=== PATIENT | female | born 1950 | race Caucasian/White ===

== ENCOUNTER → 2019-11-17 15:04 | Outpatient (CLI) | payer OTHER, SELFPAY ==
--- NOTE | ~2019-11-17 | MM_ITS ---
EXAMINATION: MM screening michael BI w verna HISTORY: Screening mammogram TECHNIQUE: Craniocaudal and mediolateral oblique 3-D tomosynthesis images were obtained and synthetic 2-D images were generated. CAD analysis was submitted and interpreted. COMPARISON: 05/23/2018, 05/06/2017, 04/30/2015 bilateral digital screening mammogram examinations BREAST PARENCHYMAL COMPOSITION: The breasts are heterogeneously dense, which may obscure small masses .. FINDINGS: There is focal asymmetry in the inner aspect of the right breast on CC projection; diagnost ic right mammogram is recommended, with ultrasound if required. Otherwise there Is no evidence of suspicious mass, calcification, or architectural distortion to sugg est malignancy in either breast. There has been no other suspicious interval change. IMPRESSION: 1. Focal asymmetry in the inner right breast on screening CC view 2. Diagnostic right mammogram is recommended, with ultrasound if required BI-RADS Category 0: Incomplete: Needs additional imaging evaluation. Reviewed, dictated and finalized at location A.
== END ==
PROVIDERS: Visit Provider Advanced Practice Midwife
DX: Z12.31 Encounter for screening mammogram for malignant neoplasm of breast (principal); R92.8 Other abnormal and inconclusive findings on diagnostic imaging of breast
CPT/HCPCS: 77063; 77067

== ENCOUNTER → 2019-11-27 14:13 | Outpatient (CLI) | payer OTHER, SELFPAY ==
--- NOTE | ~2019-11-27 | MMUS_ITS ---
EXAMINATION: MM diagnostic mammo unilat RT, US breast RT limited HISTORY: Follow-up right breast asymmetry TECHNIQUE: Additional 3-D tomosynthesis images of the right breast were performed and synthetic 2-D i mages were generated. CAD analysis was submitted and interpreted. High resolution right breast ultras ound was performed. COMPARISON: 11/17/2019 BREAST PARENCHYMAL COMPOSITION: The breasts are heterogenously dense, which may obscure small masses. FINDINGS: MAMMOGRAPHIC FINDINGS: There are no suspicious masses, calcifications or architectural distortion in the right breast to sug gest malignancy. ULTRASOUND: Limited right breast ultrasound: No heterogeneous echotexture in the medial half of the right breast without focal mass. IMPRESSION: 1. No evidence for malignancy in the right breast. 2. Routine yearly screening mammogram and regular clinical breast examination are recommended. BI-RADS Category 2: Benign finding(s). Reviewed, dictated and finalized at location A. IMPRESSION: 1. No evidence for malignancy in the right breast. 2. Routine yearly screening mammogram and regular clinical breast examination a re recommended. BI-RADS Category 2: Benign finding(s).
== END ==
PROVIDERS: Visit Provider Advanced Practice Midwife
DX: R92.8 Other abnormal and inconclusive findings on diagnostic imaging of breast (principal)
CPT/HCPCS: 76642; 77065

== ENCOUNTER → 2021-04-15 13:16 | Outpatient (CLI) | payer OTHER, SELFPAY ==
--- NOTE | ~2021-04-15 | MM_ITS ---
EXAMINATION: MM screening michael BI w verna HISTORY: Screening mammogram TECHNIQUE: Craniocaudal and mediolateral oblique 3-D tomosynthesis images were obtained and synthetic 2-D images were generated. CAD analysis was submitted and interpreted. COMPARISON: 11/27/2019 diagnostic right mammogram and limited right breast ultrasound examination 11/17/2019 bilateral screening mammogram BREAST PARENCHYMAL COMPOSITION: There are scattered areas of fibroglandular density. FINDINGS: There is no evidence of suspicious mass, calcification, or architectural distortion to sugg est malignancy in either breast. There has been no suspicious interval change. IMPRESSION: 1. No mammographic evidence of malignancy. 2. Recommend routine screening mammography in one year. BI-RADS Category 1: Negative Reviewed, dictated and finalized at location A. SHOT PACKER
--- NOTE | ~2021-04-15 | DEXA_ITS ---
Bone Density Report Name: GEOVANNA WEI Age: 70 Sex: Female Ethnicity: White Date of : 1950 Indication: osteopenia; postmenopausal Referring Provider: Ana Lilia Fontenot Study: Bone densitometry was performed. Exam Date: April 15, 2021 Accession number: [id number] Bone Density: Region BMD T-score Z-score Classification AP Spine (L1-L4) 0.867 -1.6 0.6 Osteopenia Femoral Neck (Left) 0.641 -1.9 0.0 Osteopenia Total Hip (Left) 0.753 -1.5 0.0 Osteopenia Femoral Neck (Right) 0.647 -1.8 0.1 Osteopenia Total Hip (Right) 0.786 -1.3 0.3 Osteopenia Total Hip Mean 0.770 -1.4 0.2 Osteopenia World Health Organization criteria for BMD impression classify patients as: Normal (T-score at or above -1.0), Osteopenia (T-score between -1.0 and -2.5), or Osteoporosis (T-score at or below -2.5). 10-year Fracture Risk(1): Major Osteoporotic Fracture 10% Hip Fracture 2.1% Reported Risk Factors: [place] (), Neck BMD=0.647, BMI=21.9 (1) FRAX(R) Version 3.08. Fracture probability calculated for an untreated patient. Fracture probability may be lower if the patient has received treatment. Previous Exams: Region Exam Age BMD T-score BMD Change BMD Change Date g/cm2 vs Baseline vs Previous AP Spine(L1-L4) 04/15/2021 70 0.867 -1.6 0.048* 0.023 08/20/2017 66 0.845 -1.8 0.025* 0.026* 04/28/2014 63 0.819 -2.1 -0.001 -0.015 04/05/2012 61 0.834 -1.9 0.014 -0.027* 02/28/2010 59 0.861 -1.7 0.041* 0.023* 02/13/2009 58 0.838 -1.9 0.019 0.006 02/13/2008 57 0.832 -2.0 0.013 0.036* 02/09/2007 56 0.796 -2.3 -0.023* -0.023* 02/11/2006 55 0.819 -2.1 Total Hip(Left) 04/15/2021 70 0.753 -1.5 -0.009 -0.009 08/20/2017 66 0.762 -1.5 0.000 -0.002 04/28/2014 63 0.764 -1.5 0.002 -0.030* 04/05/2012 61 0.794 -1.2 0.032* -0.006 02/28/2010 59 0.800 -1.2 0.038* 0.029* 02/13/2009 58 0.770 -1.4 0.008 -0.011 02/13/2008 57 0.781 -1.3 0.019 -0.081* 02/09/2007 56 0.861 -0.7 0.099* 0.099* 02/11/2006 55 0.762 -1.5 Total Hip(Right) 04/15/2021 70 0.786 -1.3 -0.046* -0.026 08/20/2017 66 0.813 -1.1 -0.020 -0.009 04/28/2014 63 0.821 -1.0 -0.011 -0.019 04/05/2012 61 0.840 -0.8 0.008 0.008 02/28/2010 59 0.832 -0.9 0.00
== END ==
PROVIDERS: PCP Family Medicine Sports Medicine; Visit Provider Advanced Practice Midwife
DX: Z12.31 Encounter for screening mammogram for malignant neoplasm of breast (principal); M81.0 Age-related osteoporosis without current pathological fracture; M85.88 Other specified disorders of bone density and structure, other site; M85.852 Other specified disorders of bone density and structure, left thigh; M85.851 Other specified disorders of bone density and structure, right thigh
CPT/HCPCS: 77063; 77067; 77080

== ENCOUNTER → 2022-08-07 14:54 | Outpatient (CLI) | payer OTHER, SELFPAY ==
--- NOTE | ~2022-08-07 | MM_ITS ---
EXAMINATION: MM screening michael BI w verna HISTORY: Screening mammogram TECHNIQUE: Craniocaudal and mediolateral oblique 3-D tomosynthesis images were obtained and synthetic 2-D images were generated. CAD analysis was submitted and interpreted. COMPARISON: April 15, 2021 bilateral screening mammogram November 27, 2019 diagnostic right mammogram and limited right breast ultrasound examination November 17, 2019, May 23, 2018 bilateral screening mammogram examinations BREAST PARENCHYMAL COMPOSITION: The breasts are heterogeneously dense, which may obscure small masses . FINDINGS: There is no evidence of suspicious mass, calcification, or architectural distortion to sugg est malignancy in either breast. There has been no suspicious interval change. IMPRESSION: 1. No mammographic evidence of malignancy. 2. Recommend routine screening mammography in one year. BI-RADS Category 1: Negative Reviewed, dictated and finalized at location A.
== END ==
PROVIDERS: PCP Family Medicine Sports Medicine; Visit Provider Obstetrics & Gynecology
DX: Z12.31 Encounter for screening mammogram for malignant neoplasm of breast (principal)
CPT/HCPCS: 77063; 77067

== ENCOUNTER → 2023-01-27 16:09 | Outpatient (CLI) | payer OTHER, SELFPAY ==
--- NOTE | ~2023-01-27 | XR_ITS ---
Cervical Spine: AP, lateral, open-mouth views Clinical History: Pain Findings: The normal lordotic curve is maintained. No fracture identified. There is 4 mm retrolisthes is of C5 over C6. There is minimal grade 1 anterolisthesis of C4 over C5. There is severe degenerativ e disc narrowing at C5-C6 and C6-C7. There is moderate facet arthropathy throughout the cervical spin e. Pre-vertebral soft tissues are unremarkable. Impression: 4 mm retrolisthesis of C5 over C6. Minimal grade 1 anterolisthesis of C4 over C5. Additional moderate to advanced degenerative changes, as above. Reviewed, dictated and finalized at location M. L SPRAYER PRODUCTION Impression: 4 mm retrolisthesis of C5 over C6. Minimal grade 1 anterolisthesis of C4 over C5. Additional moderate to advanced degenerative changes, as above.
--- NOTE | ~2023-01-27 | XR_ITS ---
Lumbosacral Spine: AP and lateral views Clinical History: Pain Findings: The normal lordotic curve is maintained. No fracture identified. There is 8mm anterolisthes is of L4 over L5. There is moderate degenerative disc narrowing at L2-L3 at L3-L4. There is severe fa cet arthropathy throughout the lumbar spine. The sacroiliac joints are normally outlined. Impression: 8 mm anterolisthesis of L4 over L5. Severe facet arthropathy throughout the lumbar spine, with moderate degenerative disc narrowing at L2 -L3 and L3-L4. Reviewed, dictated and finalized at location M. S SECRETARY Impression: 8 mm anterolisthesis of L4 over L5. Severe facet arthropathy throughout the lumbar spine, with moderate degenerativ e disc narrowing at L2-L3 and L3-L4.
== END ==
PROVIDERS: PCP Family Medicine; Visit Provider Family Medicine
DX: M51.36 Other intervertebral disc degeneration, lumbar region (principal); M50.90 Cervical disc disorder, unspecified, unspecified cervical region
CPT/HCPCS: 72040; 72100

== ENCOUNTER 2023-08-09 14:06 | Outpatient (CLI) | payer OTHER, SELFPAY ==
--- NOTE | ~2023-08-09 | MM_ITS ---
EXAMINATION: MM screening michael BI w verna HISTORY: Screening TECHNIQUE: Craniocaudal and mediolateral oblique 3-D tomosynthesis images were obtained and synthetic 2-D images were generated. CAD analysis was submitted and interpreted. COMPARISON: Comparison to multiple prior studies sequentially, with oldest reviewed study dated 05/06. BREAST PARENCHYMAL COMPOSITION: Not dense: There are scattered areas of fibroglandular density. FINDINGS: There is no evidence of suspicious mass, calcification, or architectural distortion to sugg est malignancy in either breast. There has been no suspicious interval change. IMPRESSION: 1. No mammographic evidence of malignancy. 2. Recommend routine screening mammography in one year. BI-RADS Category 1: Negative Reviewed, dictated and finalized at location B.
== END 2023-08-09 14:07 ==
LOC: MICIMG 14:07
PROVIDERS: PCP Family Medicine; Visit Provider Nurse Practitioner
DX: Z12.31 Encounter for screening mammogram for malignant neoplasm of breast (principal)
CPT/HCPCS: 77063; 77067

== ENCOUNTER 2024-07-29 08:23 | Outpatient (CLI) | payer OTHER, MEDICARE, SELFPAY ==
--- OUTSIDE RECORDS SUMMARY | 2024-07-29 08:28 | XMS_ITS | Referral Summary ---
Author Organization [facility] Address [address] [place] [address] Care Team Providers Care Alterations Tailor Name Role Phone Ari Katz MD Primary Care Provider [phone] Allergies No known active allergies Medications estradioL (ESTRACE) 0.01 % (0.1 mg/gram) vaginal cream estradiol 0.01% (0.1 mg/gram) vaginal cream Active MULTIVITAMIN ORAL Take by mouth Active turmeric root extract 500 mg capsule Take by mouth Active ascorbic acid (VITAMIN C) 500 mg tablet,chewable Take 1 tablet/chew tab (500 mg total) by mouth 2 (two) times a day 60 tablet/chew tab 4 Active cholecalciferol (VITAMIN D-3) 2000 unit capsule Take 1 capsule (2,000 Units total) by mouth daily 30 capsule 4 Active HYDROcodone-yulia taminophen (NORCO) 5-325 mg per tabletIndicatio ns:Pain Take 1 tablet by mouth every 6 (six) hours as needed for pain 15 tablet 4 Active ondansetron (ZOFRAN) 4 mg tabletIndicatio ns:Prevention of Post-Operative Nausea and Vomiting Take 1 tablet (4 mg total) by mouth every 6 (six) hours as needed for nausea or vomiting 20 tablet 1 4 Active Active Problems Problem Noted Date Diagnosed Date Carpal tunnel syndrome on right 04/09/2022 Overview (04/09/2022): Added automatically from request for surgery [id number] Cubital tunnel syndrome on right 04/09/2022 Overview (04/09/2022): Added automatically from request for surgery [id number] Atrophic vaginitis 01/28/2021 Vaginal pessary in situ 01/28/2021 Vaginal ulcer 01/28/2021 Social History Tobacco Use Types Packs/Day Years Used Date Smoking Tobacco: Never Smokeless Tobacco: Never AUDIT-C Answer Date Recorded Q1: How often do you have a drink containing alc ohol? 2-3 times a week 04/22/2023 Q2: How many drinks containi ng alcohol do you have on a typical day when you are drinking? 1 or 2 04/22/2023 Q3: How often do you have si x or more drinks on one occasion? Never 04/22/2023 Personal Safety Answer Date Recorded Have you ever been in or are you currently in a harmful physical or emotional relationship or is someone making you feel afraid or unsafe? Denies 04/22/2023 Comments Unknown Sex and Gender Information Value Date Recorded Sex Assigned at Not on file Legal Sex Female 1:56 PM CDT Gender Identity Not on file Sexual Orientation Not on file Last Filed Vital Signs Vital Sign Reading Time Taken Comments Blood Pressure 158/94 05/06/2023 1:46 PM CDT Pulse 61 05/06/2023 1:46 PM CDT Temperature 36.2 C (97.2 F) 04/22/2023 2:30 PM STRAIGHT LINE EDGER Respiratory Rate 18 04/22/2023 2:30 PM STRAIGHT LINE EDGER Oxygen Saturation 100% 04/22/2023 2:30 PM STRAIGHT LINE EDGER Inhaled Oxygen Concentration - - Weight 54.8 kg (120 lb 14.4 oz) 05/06/2023 1:46 PM CDT Height 157.5 cm (5' 2) 05/06/2023 1:46 PM CDT Body Mass Index 22.11 05/06/2023 1:46 PM CDT Plan of Treatment Not on file Insurance GILMAR GILMAR Care Teams Alterations Tailor Relationship Specialty Start Date End Date Ari Katz MD [address] [place] [address] PCP - General Family Medicine 04/09/23
--- OUTSIDE RECORDS SUMMARY | 2024-07-29 08:28 | XMS_ITS | Patient Health Record ---
Author Organization [employer] Address [address] [place] [address] Care Team Providers Care Test Engineer Nuclear Equipment Name Role Phone Lee Hope MD Primary Care Provider Unavailab Campbell Chua Unavailable [phone] Reason For Referral No Information Problems Problem Type SNOMED Code ICD Code Onset Dates Problem Status W/U Status Risk Notes Problem 485401572 Diverticulosis o f large intestine without perforation or abscess without bleeding (K57.30) Active confirmed Plan Of Treatment No Information Insurance Providers Payer Name Payer Address Payer Phone Subscriber Number Group Number Insured Name Patient Relationship to Insured Coverage Start Date Coverage End Date C[employer] Access [employer] [address] [facility] [place] [id number] [phone] [id number] Peggy Copeland Self - patient is the insured
--- OUTSIDE RECORDS SUMMARY | 2024-07-29 08:28 | XMS_ITS | Clinical Summary ---
Author Organization [facility] Address [address] [place] [address] Care Team Providers Care Slasher Tender Helper Name Role Phone Ari Katz MD Primary Care Provider [phone] Allergies No known active allergies Medications estradioL [...] (04/09/2022): Added automatically from request for surgery [id number] Cubital tunnel syndrome on right 04/09/2022 Overview (04/09/2022): Added automatically from request for surgery [id number] Atrophic vaginitis 01/28/2021 Vaginal pessary in situ 01/28/2021 Vaginal ulcer 01/28/2021 Surgical History Surgery Date Site/Laterality Comments HERNIA REPAIR 12/15/2022 Umbilical hernia with mesh Social History Tobacco Use Types Packs/Day Years [...] on file Sexual Orientation Not on file Obstetrics History Last Filed Vital Signs Vital Sign Reading Time Taken Comments Blood Pressure 158/94 05/06/2023 1:46 PM CDT Pulse 61 05/06/2023 1:46 PM CDT Temperature 36.2 C (97.2 F) 04/22/2023 2:30 PM ELECTRICIAN SUPERVISOR SUBSTATION Respiratory Rate 18 04/22/2023 2:3 0 PM ELECTRICIAN SUPERVISOR SUBSTATION Oxygen Saturation 100% 04/22/2023 2:30 PM ELECTRICIAN SUPERVISOR SUBSTATION Inhaled Oxygen Concentration - - Weight 54.8 kg (120 lb 14.4 oz) 05/06/2023 1:46 PM CDT Height 157.5 cm (5' 2) 05/06/2023 1:46 PM CDT Body Mass Index 22.11 05/06/2023 1:46 PM CDT Plan of Treatment Health Maintenance Due Date Last Done Comments Colon Cancer Screening-Colonoscopy 1950 Depression Screening 1950 Hepatitis C Screening 1950 Osteoporosis Screening-Bone Density Scan 1950 DTaP/Tdap/Td Vaccine (1 - Tdap) 1960 Hepatitis B Screening 12/03/1967 Pneumococcal vaccine 65+ (1 of 1 - PCV) 12/03/1999 Zoster Vaccine (1 of 2) 12/03/1999 Well Visit 65+ 2014 Breast Cancer Screening-Mammogram 08/08/2023 08/07/2022, 04/15/2021, 11/20/2019, Additional history exists Fall Risk Assessment 04/08/2024 04/08/2023 Influenza Vaccine (Season Ended) 2024 Insurance GILMAR GILMAR Care Teams Slasher Tender Helper Relationship Specialty Start Date End Date Ari Katz MD [facility] [place] [address] PCP - General Family Medicine 04/09/23
--- OUTSIDE RECORDS SUMMARY | 2024-07-29 08:29 | XMS_ITS | Data Portability ---
Author Organization [facility] Address [address] [place] [address] Care Team Providers Care Production Service Manager Name Role Phone NATALIYA HAZEL Primary Care Provider Assessment Encounter Date Assessment Date Assessment LastModified by Organization Details LastModified Time 01/27/2021 01/27/2021 Leave pessary out for 4 weeks estrace cream nightly for that time. Fu 1 month will need to continue at least occasional estrace indefinitely with pessary. Not available 01/28/2021 09:19:09 02/24/2021 02/24/2021 Ulcerated area healing well may use pessary prn, encouraged to take out at night though. continue estrace cream 3x/week. FU WWE [email or web address] Not available 02/24/2021 18:47:31 01/13/2022 01/13/2022 healthy female exam/menopause patient declines std testing pap- none further mammogram UTD colonoscopy pending dexa repeat estrace refilled and strongly encouraged or may have to stop pessary use. otherwise doing extremely well with pessary. Encouraged weight bearing exercise and 1500mg daily of Calcium with Vitamin D FU 1 year or prn [email or web address] Not available 01/14/2022 07:54:30 01/20/2023 01/20/2023 Annual gynecological exam performed. Patient will come back in a year unless there are new symptoms. [email or web address] Not available 01/20/2023 15:45:49 01/31/2024 01/31/2024 Annual gynecological exam performed. Patient will come back in a year unless there are new symptoms. Not available 01/31/2024 15:15:50 Plan of Treatment Reminders Order Date Submit Date Provider Last Modified By Organization Details Last Modified Time Details Appointments None recorded. Lab None recorded. Referral None recorded. Procedures None recorded. Surgeries None recorded. Imaging DEXA, axial skeleton + vertebral fracture assessment 2023 [facility], [address], [place], [address], 4 04:13:53 MAMMO, screening, digital, bilateral 2023 024 [facility], [address], [place], [address], 4 04:13:53 MAMMO, screening, digital, bilateral [address] [facility], [address], [place], [address], 4 05:01:01 Medication Orders estradiol 0.01% (0.1 mg/gram) vaginal cream 2023 024 [facility], [address], [place], [id number], 4 15:51:17 estradiol 0.01% (0.1 mg/gram) vaginal cream [address] [facility]16[facility], [address], [place], [id number], 3 09:31:38 Estrace 0.01% (0.1 mg/gram) vaginal cream 2021 022 [facility]75, [address], [place], [id number], 2 18:00:38 Estrace 0.01% (0.1 mg/gram) vaginal cream 2020 021 [email or web address] 1 [facility] #35646, [address] [place], [place], [id number], 17:34:31 Patient TargetsNo targets recorded. Patient InstructionsNo instructions recorded. Reason for Referral None Reported. Results Created Date Observation Date Name Description Value Unit Range Abnormal Flag Note LastModifiedBy Organization Detail LastModifiedTime 01/07/20 21 01/06/2021 IMAGE GUIDE D PAP AND HPV REGAR DLESS image guided Pap, HPV regardless of Pap result SEE RESULT S BELOW CASE REPOR T: Cytol ogy Gynec ologi consuelo Repor t Case: [id number] Autho matthewiván rodrick Provi jason: Ana Lilia Patel, JO Colle cted: 01/06 1736 Order ing Locat ion: [place] [facility] Recei alka: 01/07 0058 First Scree n: Kiki Tierney ret, CT Speci men: Scree lorraine Pap - Image d, Cervi x STATE MENT OF ADEQU ACY: Satis facto ry for evalu ation Trans forma tion zone compo nent canno t be defin itive ly ident ified due to the prese nce of atrop hy or other hormo nal le es FINAL DIAGN OSIS: Negat jesus for Intra epith elial Lesio n or Kalpesh sales (NIL) . Atrop hic alvino zimmerman rn. Jovan mistry christ d by Kiki Tierney ret, CT on 01/12 at 10:37 AM ----- ----- ----- ----- ----- ----- ----- ----- ----- ----- ----- ----- ----- ----- ----- ----- ----- ---- HPV RESUL TS: HPV mRNA E6/E7 : No HPV mRNA Detec annie NOTE: This high risk HPV mRNA assay detec ts fourt een high- risk HPV types (16, 18, 31, 33, 35, 39, 45, 51, 52, 56, 58, 59, 66, 68) witho ut diffe renti ation . COMME NT: Note: This speci men was revie wed by a Cytot echno logis t and/o r Patho logis t (as indic ated in this repor t) after evalu ation using the Thinp rep Imagi ng Syste m. CLINI CONSUELO INFOR MATIO N: Menst rual Statu s: LMP (if appli cable ): Clini consuelo Histo ry/Pr eviou s Pap: Type of Neopl napoleon (if appli cable ): Signi fican t Clini consuelo Findi ngs: Other Histo ry: Hormo ena (if appli cable ): PAP EDUCA BJORN L NOTE: The Pap Test is a scree lorraine test with an inher ent false negat jesus rate. Liqui d-bas e sampl ing may decre ase, but will not elimi logan, false negat jesus resul ts. A negat jesus resul t does not precl ude the prese nce and/o r devel opmen t of disea se, since the prese nce of abnor mal cells in the sampl e depen ds on the locat ion of the lesio n and sampl ing techn ique. Sourav nued regul ar scree lorraine is the best metho d of cance r preve ntion . If repor annie cytol ogic findi ng do not corre late with physi consuelo and/o r histo rical findi ngs, furth er inves tigat ion is recom sapna d, as clini leoncio ng nted. Not Available [facility] (Lab) [address], [place], [address], 01/12/2021 11:39:48 04/15/19 22 04/15/2021 MAMMO , scree lorraine, bilat eral No observ ation record ed. [facility] [address], [place], [address], 02/17/2023 23:27:27 04/21/19 22 04/15/2021 DEXA No observ ation record ed. [email or web address] [facility] [address], [place], [address], 05/15/2021 11:12:22 08/08/19 23 08/07/2022 MAMMO , scree lorraine, bilat eral No observ ation record ed. [email or web address] [facility] [address], [place], [address], 08/10/2022 09:04:47 08/09/19 24 08/09/2023 MAMMO , scree lorraine, digit al, bilat eral No observ ation record ed. [facility] [address], [place], [address], 08/23/2023 04:12:52 Result Notes None recorded. Problems Name Problem SNOMED Code Status Onset Date Resolution Date Notes Provider Name and Address Organization Details Recorded Time Disorder of pelvic region of trunk Completed 201701/06/2021 Cystocel e;Record ed Elsewher e: No Locat ion: [facility] S ource: E[employer] Pel[employer] Operator jared: N Tobias ce ID: 0001 Reymundo lable Time: 03:15:00 PM Marcelle crowley [facility] 14:35:53 Screenin g for malignan t neoplasm of rectum Completed 201701/06/2021 Encounte r for screenin g for malignan t neoplasm of rectum;R ecorded Elsewher e: No Locat ion: [facility] S ource: [employer] Operator jared: N Juliocesarti ce ID: 0001 Reymundo lable Time: 04:00:00 PM Marcelle crowley [facility] 14:35:[address] Concept Completed 201801/06/2021 Encntr for general adult medical exam w/o abnormal findings ;Recorde d Elsewher e: No [facility]at ion[facility] Pract[facility] ce ID: 0001 Reymundo lable Time: 03:30:00 PM Marcelle crowley [facility] 14:36:00 Screenin g for malignan t neoplasm of cervix Completed 201101/06/2021 Screenin g for malignan t neoplasm s of the cervix;R ecorded Elsewher e: No Locat ion: [facility] Practi ce ID: 0001 Reymundo lable Time: 04:30:00 PM Marcelle crowley, [facility] 14:35:51 Adult health examinat ion Completed 201401/06/2021 ROUTINE MEDICAL EXAM;Rec orded Elsewher e: No Locat ion: [facility] S ource: [employer] Operator jared: N Practi ce ID: 0001 Reymundo lable Time: 04:00:00 PM Marcelle crowley, [facility] 14:35:56 Leukocyt osis [id number] Completed 201401/06/2021 LEUKOCYT OSIS NOS;Nuno rded Elsewher e: No Locat ion: [facility] Practi ce ID: 0001 Reymundo lable Time: 04:00:00 PM Marcelle crowley, [facility] 14:35:47 Speciali zed medical examinat ion Completed 201301/06/2021 Gynecolo gical Examinat ion;Nuno rded Elsewher e: No Locat ion: [facility] N Practi ce ID: 0001 Reymundo lable Time: 04:30:00 PM Marcelle crowley, [facility] 14:36:07 Abnormal granulat ion tissue 82508034 Completed 201401/06/2021 Abnormal granulat ion tissue;R ecorded Elsewher e: No Locat ion: [facility] S ource: E[employer] Operator jared: N Juliocesarti ce ID: 0001 Reymundo lable Time: 04:30:00 PM Marcelle corwley [facility] 1 14:35:[address] Concept Completed 201501/06/2021 Encntr for paper cutter exam (general ) (routine ) w/o abn findings ;Recorde d Elsewher e: No Locat ion: [facility] S ource: [employer] Operator jared: N Juliocesarti ce ID: 0001 Reymundo lable Time: 04:00:00 PM Marcelle crowley, [facility] 14:36:01 Abdomina l bloating 511146377 Completed 201501/06/2021 Bloating ;Recorde d Elsewher e: No Locat ion: [facility] S ource: [employer] jared: N Juliocesarti ce ID: 0001 Reymundo lable Time: 04:00:00 PM Marcelle crowley, [facility] 14:35:48 Elevated blood-pr essure reading without diagnosi s of hyperten dano [id number] Completed 201501/06/2021 Elevated blood-pr essure reading without diagnosi s of HTN;Nuno rded Elsewher e: No Locat ion: [facility] S ource: [employer] Operator jared: N Juliocesarti ce ID: 0001 Reymundo lable Time: 04:00:00 PM Marcelle crowley [facility] 14:36:03 Bone density finding 182565709 Completed 201701/06/2021 Oth disrd of bone density and structur e, multiple sites;Re corded Elsewher e: No Locat ion: [facility] S ource: [employer] Operator jared: N Juliocesarti ce ID: 0001 Reymundo lable Time: 01:44:52 PM Marcelle crowley, [facility] 14:36:05 Postmeno pausal bleeding 31758141 Completed 201101/06/2021 Postmeno pausal bleeding ;Recorde d Elsewher e: No Locat ion: [facility] S ource: [employer] Operator jaerd: N Juliocesarti ce ID: 0001 Reymundo lable Time: 04:15:00 PM Marcelle crowley, [facility] 1 14:36:13 Disorder of bone and articula r cartilag e 140874004 Completed 201401/06/2021 Disorder of bone and cartilag e, unspecif ied;Nuno rded Elsewher e: No Locat ion: [facility] S ource: [employer] Operator jared: N Tobias ce ID: 0001 Reymundo lable Time: 04:23:15 PM Marcelle crowley, [facility] 1 14:35:54 Urinary tract infectio us disease 09874802 Completed 201301/06/2021 Urinary Tract Infectio n;Record ed Elsewher e: No Locat ion: [facility] S ource: [employer] Operator jared: N Juliocesarti ce ID: 0001 Reymundo lable Time: 04:30:00 PM Marcelle crowley, [facility] 1 14:36:12 Vaginal pessary in situ 6660343543 104 Active 2020 Kelin Morris MD [address], [place], [address], [place] [facility] 1 09:15:53 Atrophic vaginiti s 65698153 Active 2020 Kelin Morris MD [address], [place], [address], [place] [facility] 1 09:16:00 Vaginal ulcer 50567137 Active 2020 Kelin Morris MD [address], [place], [address], [facility] 1 09:16:01 Osteopen ia 071143812 Active 2021 Kelin Morris MD [address], [place], [address], [facility] 2 07:50:57 Problem Notes None recorded. Procedures Surgical History Date Name Laterality Status Provider Name and Address Organization Details Recorded Time 4 Date of Last [facility] 15:16:44 3 hernia repair completed Judi Freitas [facility] 01/20/2023 15:55:35 2 Most Recent Bone Density completed Gayle Ibarra [facility] 01/12/2022 15:09:09 1 Date of Last Pap Smear [facility] 01/31/2024 15:29:[address] [facility] 01/06/2021 14:38:21 2 completed [facility] 01/06/2021 14:38:57 Imaging Results None recorded. Procedure Notes None recorded. Medical Equipment None Reported. Allergies No known drug allergies Medications Name Sig Start Date Stop Date Status Note LastModified by Organization Details LastModified Time ketoconaz ole 2 % shampoo 01/06 completed Not Available Not Available Not Available azithromy mariam 250 mg tablet TAKE 2 TABLETS BY MOUTH FOR 1 DAY THEN TAKE 1 TABLET BY MOUTH DAILY FOR 4 DAYS 01/20 completed Not Available Not Available Not Available valacyclo vir 1 gram tablet 08/10 completed Not Available Not Available Not Available hydrocodo ne 5 mg-acetam inophen 325 mg tablet TAKE 1 TABLET BY MOUTH EVERY 6 HOURS NEEDED FOR PAIN 01/30 completed Not Available Not Available Not Available ondansetr on HCl 4 mg tablet 01/30 completed Not Available Not Available Not Available prednison e 20 mg tablet 01/27 completed Not Available Not Available Not Available sulfameth oxazole 800 mg-trimet hoprim 160 mg tablet 01/06 completed Not Available Not Available Not Available Macrobid 100 mg capsule Take 1 capsule every 12 hours by oral route for 7 days. 01/06 completed Not Available Not Available Not Available imiquimod 5 % topical cream packet active Not Available Not Available Not Available neomycin- polymyxin -dexameth 3.5 mg/mL-10, 000 unit/mL-0 .1% eye drops 08/10 completed Not Available Not Available Not Available Viactiv 500 mg-100 unit-40 mcg chewable tablet 04/24 completed Prescrib ed Elsewher e: Yes [facility] By: ashley serranountmanish DateTime : 04/09/19 04:00:00 PM Not Available Not Available Not Available estradiol 0.01% (0.1 mg/gram) vaginal cream Insert 1 g 3 times a week by vaginal route. 2023 active Not Available Not Available Not Avai lable methylpre dnisolone 4 mg tablets in a dose pack 08/10 completed Not Available Not Available Not Available clobetaso l 0.05 % scalp solution 01/06 completed Not Available Not Available Not Available cefdinir 300 mg capsule 08/10 completed Not Available Not Available Not Available amoxicill in 875 mg-potass ium clavulana te 125 mg tablet TAKE 1 TABLET BY MOUTH TWICE DAILY FOR 7 DAYS 01/30 completed Not Available Not Available Not Available Collagen Plus Vitamin C 125 mg-740 mg capsule 04/24 completed Prescrib ed Elsewher e: No [facility] By: ashley Joy ncounter DateTime : 04/09/19 04:00:00 PM Not Available Not Available Not Available azelastin e 137 mcg-fluti casone 50 mcg/spray nasal spray INSTILL 1 SPRAY INTO EACH NOSTRIL EVERY 12 HOURS FOR 7 DAYS 01/30 completed Not Available Not Available Not Available tavaborol e 5 % topical solution with applicato r APPLY TO AFFECTED NAIL(S) ONCE DAILY 01/30 completed Not Available Not Available Not Available Soolantra 1 % topical cream 08/10 completed Not Available Not Available Not Available Clenpiq 10 mg-3.5 gram-12 gram/160 mL oral solution USE BOX DIRECTIO NS 01/20 completed Not Available Not Available Not Available Vitals Date Recorded Body height Body mass index (BMI) Body weight Systolic blood pressure Diastolic blood pressure Provider Name and Address Organization Details Last Updated DateTime 02/24/2021 154.94 cm 23.2 kg/m2 85340.86 g 137 mm[Hg] 83 mm[Hg] [facility] 2 17:32:10 Date Recorded Body height Body mass index (BMI) Body weight Systolic blood pressure Diastolic blood pressure Provider Name and Address Organization Details Last Updated DateTime 01/13/2022 154.94 cm 23.1 kg/m2 47052.27 g 141 mm[Hg] 84 mm[Hg] Angely Sandhu [facility] 2 17:34:26 Date Recorded Body height Body mass index (BMI) Body weight Systolic blood pressure Diastolic blood pressure Provider Name and Address Organization Details Last Updated DateTime 01/20/2023 154.94 cm 23.1 kg/m2 55189.99 g 133 mm[Hg] 82 mm[Hg] Judi Freitas [facility] 3 15:54:48 Date Recorded Body height Body mass index (BMI) Body weight Systolic blood pressure Diastolic blood pressure Provider Name and Address Organization Details Last Updated DateTime 01/27/2021 154.94 cm 23.1 kg/m2 72801.27 g 128 mm[Hg] 72 mm[Hg] [facility] 1 17:57:05 Date Recorded Body height Body mass index (BMI) Body weight Systolic blood pressure Diastolic blood pressure Provider Name and Address Organization Details Last Updated DateTime 01/31/2024 154.94 cm 22.3 kg/m2 93597.9 g 145 mm[Hg] 73 mm[Hg] Alda Bhattton [facility] 15:32:21 Social History Question Answer Notes LastModified by Organizat ion Details LastModified Time Tobacco Smoking Status Never Smoker Marge Green keo, [facility] 02/24/2021 17:20:33 Are You Blind Or Do You Have Difficulty Seeing? No [email or web address] Information n ot available 01/13/2022 What Is Your Level Of Caffeine Consumption? Occasional [email or web address] Information not available 01/13/2022 In The 14 Days Before Symptom Onset, Have You Had Close Contact With A Laboratory-confirm ed COVID-19 While That Case Was Ill? No [email or web address] Information n ot available 01/06/2021 In The 14 Days Before Symptom Onset, Have You Had Close Contact With A Person Who Is Under Investigation For COVID-19 While That Person Was Ill? No [email or web address] Information not available 01/06/2021 Have You Been To An Area Known To Be High Risk For COVID-19? No Information not available 01/06/2021 Are You Deaf Or Do You Have Serious Difficulty Hearing? No [email or web address] Information not available 01/13/2022 What Type Of Diet Are You Following? REGULAR [email or web address] Information n ot available 01/13/2022 Have You Ever Been Counseled For Unhealthy Alcohol Use? No [email or web address] Information not available 01/13/2022 How Much Tobacco Do You Smoke? No [email or web address] Information not available 01/06/2021 Has Tobacco Cessation Counseling Been Provided? No Information not available 01/13/2022 Do You Have Difficulty Walking Or Climbing Stairs? No [email or web address] Information not available 01/13/2022 Sex: Unknown Functional Status Question Answer Note LastModified by Organizat ion Details LastModified Time Do you use any illicit or recreational drugs? No [email or web address] Information not available 01/13/2022 Do you or have you ever used any other forms of tobacco or nicotine? No [email or web address] Information not available 01/13/2022 What is your level of alcohol consumption? Occasional [email or web address] Information not available 01/13/2022 Are you able to walk? YESWOREST [email or web address] Information not available 01/13/2022 Are you able to care for yourself? Yes [email or web address] Information n ot available 01/13/2022 Do you have difficulty dressing or bathing? No [email or web address] Information not available 01/13/2022 What is your exercise level? Occasional [email or web address] Information not available 01/13/2022 Mental Status None recorded. Family History Relationship Description Onset Age of this Age Resolved Age Notes LastModified by Organization Details LastModified Time Brother Diabetes mellitus [email or web address] Not available 2020 14:13:35 Father Heart disease [email or web address] Not available 2020 14:13:42 Mother Malignant neoplasm of lung [email or web address] Not available 2020 14:13:48 Notes:12/27/2020 Cancer risk form compelte 12/27/2020 Medical History Condition Response Allergies (Food, seasonal, environmental ) N Other N Blood Transfusion N Drug/Latex Allergies/Reactions N Breast Cancer N Dermatologic Disorders N Lung Disease N Defects or Inherited Disease N Breast Problem N Gestational Diabetes N Hematologic disorders N Anesthesia Complications N History of STI N Deep Vein Thrombosis N Polycystic ovary syndrome N Anxiety Disorder N Autoimmune disease N Arthritis N Infertility N Polyps N Acid Reflux (GERD) N History of abnormal pap N Cancer N Stroke N Varicosities N Neurologic/Epilepsy N Endometriosis N High Cholesterol N Headaches N Fibromyalgia N Kidney Disease N Heart Problems N Kidney or Bladder Problems N Thyroid Problems N GI Problems N Eating Disorder N Anemia N Art (IVF or FET) N Psychiatric Illness N Ovarian Cancer N Diabetes N Pulmonary (TB, Asthma) N Hepatitis/Liver Disease N No Past Medical History N Eczema N Urinary Tract Infection N Abuse/Domestic Violence N Asthma N Trauma/Violence N Depression/ depression N Heart Disease N Pre-Eclampsia N Hypertension N Osteoporosis N Thrombophilias N Gynecological History Statement/Question Response Abnormal Pap N Date of Last Mammogram 08/09/2023 Date of LMP 02/22/1999 On BCP's at Conception? N STIs/STDs N HPV Vaccine N 11/27/2019 Current Control Method Menopause Date of Last Colonoscopy Most Recent Bone Density 04/15/2021 Date of Last Pap Smear 01/06/2021 Sexual Problems? N LMP Definite 02/22/2011 Obstetrics History GPAL:G 2 P 1 0 1 1 Type Value Full Term 1 Spontaneous 1 Living 1 Total 2 Past Encounters Encounter ID Performer Location Encounter Start Date Encounter Closed Date Diagnosis/Indication Diagnosis SNOMED-CT Code Diagnosis ICD10 Code Diagnosis Note [id number] Kimberly Lion [facility] [address] [address] 08/11/2019 15:59:17 08/16/2019 10:47:03 Gynecologic examination 92328177 Z01.419 [id number] Kimberly Lion [facility] [address],[place] [address] 09/18/2019 15:25:37 09/20/2019 17:19:20 [id number] Ana Lilia Fontenot [place] [id number],[place] [address] 01/06/2021 16:48:00 01/07/2021 19:15:16 Gynecologic examination 56571578 Z01.419 Take Calcium with Vitamin D 12-1500mg daily. Do monthly self breast exams. It is advised to get annual flu shot in the fall and she could obtain at [facility] or [facility] clinic. If you haven't received the Tdap vaccine in the last 10 years you should obtain one as well. Declines all vaccinatio ns. Have mammogram yearly, bone density every 2-3 years and colonoscop y every 5-10 years depending on findings and history. Bone density and mammogram orders given. Engage in daily exercise of low impact aerobic exercise 45-60 minutes 4-5 times weekly. Avoid tobacco and illicit drugs as well as using moderation with alcohol intake less than 1-2 8 oz beverages daily. This lifestyle behavior pattern will lead to less health conditions and longer life span. If BMI greater than 25 weight watchers or dietary consult advised. Questions have been answered. Patient appears to understand instructio ns, but if you have any further questions call or respond to this email. Vaginal irritation 49289 6004 N89.8 Return for MD evaluation . [id number] Kelin Morris MD [place] [address],[place] [address] 01/13/2022 17:01:39 01/14/2022 13:55:19 Vaginal ulcer 72463857 N76.5 Gynecologi c examination 60020741 Z01.419 Atrophic vaginitis 30825 000 N95.2 Vaginal pe ssary in situ 5351395903 104 Z96.0 Osteopenia 543128251 M85 .89 [id number] Kelin Morris MD [place] [address],[place] [address] 01/27/2021 17:38:43 01/28/2021 12:13:21 Atrophic vaginitis 12860088 N95.2 Vaginal ulcer 66368532 N 76.5 [id number] Kelin Morris MD [place] [address],[place] [address] 02/24/2021 17:18:49 02/25/2021 10:07:24 Atrophic vaginitis 46149189 N95.2 Vaginal pe ssary in situ 4121356502 104 Z96.0 Vaginal ulcer 32167333 N 76.5 [id number] DALIA Navarro [facility] [address],[place] [address] 01/20/2023 15:17:41 01/21/2023 10:14:32 Gynecologic examination 35866036 Z01.419 WWEpostmen opausaldoi ng well with pessarywil l continue with estrace cream 2-3 times per weekno further papsSTI testing declinedma mmogram order givencolon CA screening UTDdexa due 4RTC in 1 yr or sooner if needed Take Calcium with Vitamin D daily. Do monthly self breast exams. It is advised to get annual flu shot in the fall and she could obtain at [facility] or [facility] care clinic. If you haven't received the Tdap vaccine in the last 10 years you should obtain one as well. Have mammogram yearly, bone density every 2-3 years and colonoscop y every 5-10 years depending on findings and history. Engage in daily exercise of low impact aerobic exercise 45-60 minutes 4-5 times weekly. Avoid tobacco and illicit drugs. This lifestyle behavior pattern will lead to less health conditions and longer life span. If BMI greater than 25 dietary consult advised. Questions have been answered. 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 Patient will come back in a year unless there are new symptoms. Suggest Calcium with Vitamin D if not eating in diet. Patient advised to get annual flu shot. Recommend yearly physicals and perform monthly breast exams. Genetic testing is available for patients with family history of cancer. Engage in safe sexual practices, use condoms. Encouraged to have daily exercise. Avoid tobacco and illicit drugs, moderation of alcohol. If BMI greater than 25 dietary consult advised. If you have any questions please call or email. mammogram- UTD; order given; pt to schedule colon cancer screening - UTD PCP DEXA scan- DUE Pap smear- USPSTF recommends against screening for cervical cancer in women older than 65yo, those who've had a hysterecto my for non-cancer indication s, & who have had adequate prior screening & are not otherwise at high risk for cervical cancer. 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 [id number] N81.9 Screening for osteoporosis [id number] Z13.820 Health Concerns Section Related Observation LastModified by Organization Detai ls LastModified Time None Recorded Concern Status LastModified by Organization Details LastModified Time None Recorded Advance Directives Directive None Recorded Payers Encounter Date Sequence Insurance Name Policy Number Policy Tejeda Covered Member ID Tejeda Member ID Guarantor Name 01/27/2021 1 [employer] [id number] Peggy Sheikh Regna [id number] 1 Peggy Sheikh Regna 02/24/2021 1 [employer] [id number] Peggy Sheikh Regna [id number] 1 Peggy Sheikh Regna 01/13/2022 1 [employer] [id number] Peggy Sheikh Regna [id number] 1 Peggy Sheikh Regna 01/20/2023 1 [employer] [id number] Peggy Sheikh Regna [id number] 1 Peggy Sheikh Regna 01/31/2024 1 [employer] [id number] Peggy Sheikh Regna [id number] 1 Peggy Copeland Notes Date Note Type Note Provider Name and Address Organization Details Recorded Time 1 text/html Peggy is here for follow up vaginal ulceration seen at [facility]. Has pessary for about last 8 years. Does not use estrogen. Wears it for up to 2 weeks at a time, then takes it out for a few days at a time. Has noticed some very mild spotting recently. No pain. Loves pessary. Kelin Morris MD [address], [place], [address], [facility] 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 Has had pessary out for a month except for twice she put it in for 2 days because things were getting bad. Has been using estrace nightly. Much of the time with it out she has felt she didn't need it, so now just wants to use it prn. no bleeding. Kelin Morris MD [address], [place], [address], [facility] 02/24/2021 18:47:52 2 text/html Patient is a 71yo who presents for an annual exam and follow up for pessary, atrophy. She forgets to use her estrace cream. just today had a little spotting when removed pessary. otherwise does well, takes it out every night. last pap-2020. mammo-03/2021 colonoscopy-cologuard 2 weeks ago, was pos, awaiting colonoscopy dexa-03/2021 osteopenia menopause-y sexually active-n seatbelts-y exercise-y, regular depression-denies domestic violence-denies tobacco-n concerns- Kelin Morris MD [address], [place], [address], [facility] 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.Menopausal Symptoms:no menopausal symptoms; normal vaginal lubrication Vaginal Bleeding:history of menopause having occurred; no history of post menopausal bleeding Urinary Symptoms:no hematuria; no incontinence; no nocturia; no urinary frequency Vulva:no genital lesion; no vulvar atrophy Vagina:normal vaginal discharge; no vaginal atrophy Breast:no breast lump; no nipple discharge; no breast pain Sexual Complaints:no sexual complaints Psychological Symptoms:no depression; no anxiety Preventive Measures:encourage regular mammograms starting age 40; encourage self breast examination; encourage regular exercise; encourage no tobacco use; history of recent colonoscopyNotes:uses pessary PRN, doing extremely well with pessary. Takes out nightlyuses estrace cream 2-3 times per weekno hx of abnormal papsvery active, exercises regularlymammogram UTD ,due 4dexa UTD, last 2cologuard UTD with PCP denies SOB, chest pain, dizziness, HTN, hx of BC or DVT/PE DALIA Navarro [address], [place], [address], [facility] 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.Menopausal Symptoms:no menopausal symptoms; normal vaginal lubrication Vaginal Bleeding:history of menopause having occurred; no history of post menopausal bleeding Urinary Symptoms:no hematuria; no incontinence; no nocturia; no urinary frequency Vulva:no genital lesion; no vulvar atrophy Vagina:normal vaginal discharge; no vaginal atrophy Breast:no breast lump; no nipple discharge; no breast pain Sexual Complaints:no sexual complaints Psychological Symptoms:no depression; no anxiety Preventive Measures:encourage regular mammograms starting age 40; encourage self breast examination; encourage regular exercise; encourage no tobacco use CRISTINA NESS NP [address], [place], [address], [facility] 01/31/2024 15:56:08 OBGyn Episode Ob Episode Information Episode Created Date Number of Fetuses Patient Bloodtype Patient rh Status Prepregnancy Weight lbs Domestic Partner Domestic Partner Phone Father Name Electrical Plumbing Supervisor Status 01/07/20 21 1 CLOSED Fetus Data First Name Last Name Admitted to NICU Weight (g) Sex Living Outcome Pediatric Complications Fetus ID Race Codes Race Delivery Type M Full Term [id number] Vaginal Delivery Ross Calculation Initial Ross Date Initial Exam Date Initial Exam Provider Initial Ultrasound Date Last Menstrual Period Date Ultra Sound Weeks Gestation 0 Eighteen To Twenty Week Ross Update Ultra Sound Date Fundal Height At Umbil Quickening Date Ultra Sound Latest Weeks Gestation Final Ross Confirmed By Final Ross Confirmed Date Final Ross Date Ultra Sound Latest Days Gestation 0 0 Menstrual History Last Menstrual Date Menses Monthly On Bcp Conception Prior Menses Frequency Hcg Plus Date Menarche Onset Age Delivery Information Delivery Date Delivery Type Labor Anesthesia Weeks Gestation Incision Type Labor Labor Length Hrs Delivered By Post Complications Tubal Sterilization Discharge Date Comments 0 Discharge Information Feeding Method Contraceptive Method Maternal HG B and HCT Levels Ob Episode Information Episode Created Date Number of Fetuses Patient Bloodtype Patient rh Status Prepregnancy Weight lbs Domestic Partner Domestic Partner Phone Father Name Electrical Plumbing Supervisor Status 01/07/20 21 1 CLOSED Fetus Data First Name Last Name Admitted to NICU Weight (g) Sex Living Outcome Pediatric Complications Fetus ID Race Codes Race Delivery Type , Spontane ous [id number] Ross Calculation Initial Ross Date Initial Exam Date Initial Exam Provider Initial Ultrasound Date Last Menstrual Period Date Ultra Sound Weeks Gestation 0 Eighteen To Twenty Week Ross Update Ultra Sound Date Fundal Height At Umbil Quickening Date Ultra Sound Latest Weeks Gestation Final Ross Confirmed By Final Ross Confirmed Date Final Ross Date Ultra Sound Latest Days Gestation 0 0 Menstrual History Last Menstrual Date Menses Monthly On Bcp Conception Prior Menses Frequency Hcg Plus Date Menarche Onset Age Delivery Information Delivery Date Delivery Type Labor Anesthesia Weeks Gestation Incision Type Labor Labor Length Hrs Delivered By Post Complications Tubal Sterilization Discharge Date Comments 3 Discharge Information Feeding Method Contraceptive Method Maternal HG B and HCT Levels
--- NOTE | 2024-07-29 08:43 | ECG_ITS ---
Test Date: 2024-07-29 08:52:54 Measurements Intervals [place] Rate: 65 P: 54 MS: 143 QRS: 38 QRSD: 89 T: 56 QT: 414 QTc: 433 Interpretive Statements SINUS RHYTHM WITH SINUS ARRHYTHMIA BASELINE ARTIFACT- I, II, III, AVR, AVL, AVF, V1 NORMAL ECG No previous ECG available for comparison Electronically Signed On 07-29-2024 16:11:05 CDT by Chilo Bahena D.O.
[2024-07-29 08:46] LABS: Hematocrit 44.9 % (37.0-47.0); Mean Corpuscular HGB Conc 33.4 g/dl (32-36); Mean Corpuscular Hemoglobin 30.5 pg (26-34); Mean Corpuscular Volume 91.3 fl (80-100); Mean Platelet Volume 8.5 fl (7.4-10.4); Platelet Count Result 161 k/mm3 (150-375); Red Blood Count 4.92 M/mm3 (4.2-5.4); White Blood Count 5.7 K/mm3 (4.5-10.0)
[2024-07-29 09:44] LABS: Alanine Aminotransferase 29 U/L (6-35); Albumin Level 4.4 g/dL (3.5-5.1); Alkaline Phosphatase 39 U/L (38-126); Anion Gap 6 mmol/L (4-12); Aspartate Amino Transferase 34 U/L (14-36); Blood Urea Nitrogen 18 mg/dL (7-17); Calcium 9.1 mg/dL (8.4-10.2); Carbon Dioxide 28 mmol/L (22-30); Chloride 106 mmol/L (98-107); Estimated Glomerular Filt Rate > 60; Glucose 108 mg/dL (65-110); Potassium 3.7 mmol/L (3.4-5.0); Sodium 140 mmol/L (137-145); Total Protein 7.5 g/dL (6.3-8.2)
== END 2024-07-29 08:24 | disposition home or self-care (01) ==
LOC: ANHLAB 08:27
PROVIDERS: PCP Family Medicine; Visit Provider Orthopaedic Surgery
DX: Z01.818 Encounter for other preprocedural examination (principal); G56.21 Lesion of ulnar nerve, right upper limb
CPT/HCPCS: 36415; 80053; 85027; 93005

== ENCOUNTER 2024-08-07 14:13 | Outpatient (CLI) | payer OTHER, SELFPAY ==
--- NOTE | ~2024-08-07 | DEXA_ITS ---
Bone Density Report Name: GEOVANNA WEI Age: 73 Sex: Female Ethnicity: White Date of : 1950 Indication: osteopenia; height loss; Referring Provider: THI, CRISTINA Whitaker Study: Bone densitometry was performed. Exam Date: August 07, 2024 Accession number: [id number] Bone Density: Region BMD T-score Z-score Classification AP Spine(L1-L4) 0.932 -1.0 1.3 Normal Femoral Neck (Left) 0.663 -1.7 0.4 Osteopenia Total Hip (Left) 0.733 -1.7 0.0 Osteopenia Femoral Neck (Right) 0.657 -1.7 0.3 Osteopenia Total Hip (Right) 0.760 -1.5 0.3 Osteopenia Total Hip Mean 0.747 -1.6 0.2 Osteopenia World Health Organization criteria for BMD impression classify patients as: Normal (T-score at or above -1.0), Osteopenia (T-score between -1.0 and -2.5), or Osteoporosis (T-score at or below -2.5). 10-year Fracture Risk(1): Major Osteoporotic Fracture 11% Hip Fracture 2.5% Reported Risk Factors: [place] (), Neck BMD=0.657, BMI=21.8 (1) FRAX(R) Version 3.08. Fracture probability calculated for an untreated patient. Fracture probability may be lower if the patient has received treatment. Previous Exams: -- Region Exam Age BMD T-score BMD Change BMD Change Date g/cm2 vs Baseline vs Previous -- AP Spine (L1-L4) 08/07/2024 73 0.932 -1.0 13.7%* 7.4%* 04/15/2021 70 0.867 -1.6 5.8%* 2.7% 08/20/2017 66 0.845 -1.8 3.1%* 3.2%* 04/28/2014 63 0.819 -2.1 -0.1% -1.8% 04/05/2012 61 0.834 -1.9 1.8% -3.1%* 02/28/2010 59 0.861 -1.7 5.1%* 2.7%* 02/13/2009 58 0.838 -1.9 2.3% 0.7% 02/13/2008 57 0.832 -2.0 1.6% 4.5%* 02/09/2007 56 0.796 -2.3 -2.8%* -2.8%* 02/11/2006 55 0.819 -2.1 Total Hip(Left) 08/07/2024 73 0.733 -1.7 -3.8%* -2.7% 04/15/2021 70 0.753 -1.5 -1.1% -1.2% 08/20/2017 66 0.762 -1.5 0.0% -0.2% 04/28/2014 63 0.764 -1.5 0.2% -3.8%* 04/05/2012 61 0.794 -1.2 4.2%* -0.7% 02/28/2010 59 0.800 -1.2 4.9%* 3.8%* 02/13/2009 58 0.770 -1.4 1.1% -1.3% 02/13/2008 57 0.781 -1.3 2.5% -9.4%* 02/09/2007 56 0.861 -0.7 13.1%* 13.1%* 02/11/2006 55 0.762 -1.5 Total Hip(Right) 08/07/2024 73 0.760 -1.5 -8.7%* -3.4% 04/15/2021 70 0.786 -1.3 -5.5%* -3.2% 08/20/2017 66 0.813 -1.1 -2.4% -1.1% 04/28/2014 63 0.821 -1.0 -1.3% -2.2% 04/05/2012 61 0.840 -0.8 0.9% 1.0% 02/28/2010 59 0.832 -0.9 0.0% -1.9% 02/13/2009 58 0.848 -0.8 1.9% 1.3% 02/13/2008 57 0.837 -0.9 0.6% -9.5%* 02/09/2007 56 0.924 -0.1 11.1%* 11.1%* 02/11/2006 55 0.832 -0.9 -- *Denotes significance at 95% confidence level, LSC for AP Spine = 0.022 g/cm2, LSC for Total Hip = 0.027 g/cm2 Clinical Information Provided by Patient: Has used the following medications: Vitamin D Patient maximum height was 63 Menopause Age: 48 Drinks caffeinated beverages Onset of menses at age 11 Number of children 1 Impression: The patient has low bone mass, based on the Left Total Hip T-score. The patient has an estimated ten-year risk of hip fracture of 2.5% and an estimated ten-year risk of major fracture of 11%, based on the WHO FRAX algorithm. No significant bone loss was observed. Discussion: BONE DENSITY IS LOW AT ONE OR MORE SKELETAL SITES. This patient's lowest T-score is low at one or more skeletal sites. It meets the World Health Organization's (WHO) criteria for ?low bone mass? (T-score between -1.0 and -2.5). The patient's 10-year risk of fracture as calculated by FRAX is less than the threshold where pharmacological therapy is recommended by the National Osteoporosis Foundation (NOF). However, all treatment decisions require clinical judgment and consideration of individual patient factors, including patient preferences, comorbidities, previous drug use, risk factors not captured in the FRAX model (e.g., frailty, falls, vitamin D deficiency, increased bone turnover, interval significant decline in bone density) and possible under or overestimation of fracture risk by FRAX. The patient should follow a healthful lifestyle (good nutrition with adequate calcium and vitamin D, and appropriate weight-bearing exercise). Follow-Up: Consider repeating this study in 2 to 3 years to reassess this patient's status, or sooner if there is some new clinical indication. Reported by: HOLGER on 08/07/2024 2:42:00 PM. Reviewed, dictated and finalized at location A.
== END 2024-08-07 14:14 | disposition home or self-care (01) ==
PROVIDERS: PCP Family Medicine; Visit Provider Student in an Organized Health Care Education/Training Program
DX: Z13.820 Encounter for screening for osteoporosis (principal); M81.0 Age-related osteoporosis without current pathological fracture; M85.852 Other specified disorders of bone density and structure, left thigh; M85.851 Other specified disorders of bone density and structure, right thigh
CPT/HCPCS: 77080

== ENCOUNTER 2024-08-10 14:19 | Outpatient (CLI) | payer OTHER, SELFPAY ==
--- NOTE | ~2024-08-10 | MM_ITS ---
EXAMINATION: MM screening [facility] BI w verna HISTORY: Screening TECHNIQUE: Craniocaudal and mediolateral oblique 3-D tomosynthesis images were obtained and synthetic 2-D images were generated. CAD analysis was submitted and interpreted. COMPARISON: Comparison to multiple prior studies sequentially, with oldest reviewed study dated 02/2018. BREAST PARENCHYMAL COMPOSITION: There are scattered areas of fibroglandular density. FINDINGS: There is no evidence of suspicious mass, calcification, or architectural distortion to sugg est malignancy in either breast. There has been no suspicious interval change. IMPRESSION: 1. No mammographic evidence of malignancy. 2. Recommend routine screening mammography in one year. BI-RADS Category 1: Negative Reviewed, dictated and finalized at location A.
== END 2024-08-10 14:20 | disposition home or self-care (01) ==
LOC: MICIMG 14:20
PROVIDERS: PCP Family Medicine; Visit Provider Student in an Organized Health Care Education/Training Program
DX: Z12.31 Encounter for screening mammogram for malignant neoplasm of breast (principal)
CPT/HCPCS: 77063; 77067